=== PATIENT | male | born 1985 | race Caucasian/White ===

== ENCOUNTER 2018-11-04 19:16 | Emergency (ER) | payer OTHER ==
[2018-11-04] MEDS ORDERED: PROMETHAZINE HCL 25 MG/ML INJ IVP ONE (19:23)
[2018-11-04] MEDS ORDERED: FAMOTIDINE 20 MG/NACL 50 ML IV ONE (19:23)
[2018-11-04] MEDS ORDERED: NS 1,000 ML IV ONE (19:23)
[2018-11-04] MEDS ORDERED: ONDANSETRON 4 MG/2 ML VIAL IVP ONE (19:23)
[2018-11-04] MEDS ORDERED: PANTOPRAZOLE SODIUM 40 MG VIAL IVP ONE (19:40)
--- NOTE | 2018-11-04 19:46 | EDPHY ---
H & P Time Seen by Provider: 11/04/18 19:23 HPI/ROS: HPI Acid reflux. Vomiting. 33-year-old male by private vehicle with his girlfriend. This patient presents to the emergency department complaining of a sensation of acid reflux which comes on in the morning every morning, causes him a cough and then vomit. He reports that this has been going on for 6-8 months. He reports that it has been worse in the last couple of weeks and is occurring every morning and sometimes throughout the day. He reports that he has a burning sensation in his epigastrium when this is occurring. He has not seen a physician for this. He moved to [place] for last July. He currently does not have a primary care physician. Last bowel movement was yesterday. No bloody or melenic stool. No diarrhea. ROS: Constitutional: No fever, no chills. No weakness. Eyes: No discharge. No changes in vision. ENT: No sore throat. No nasal congestion or rhinorrhea. Respiratory: As above. No shortness of breath. Cardiac: No chest pain, no palpitations. Gastrointestinal: As above. Genitourinary: No hematuria. No dysuria or increased frequency with urination. Musculoskeletal: No back pain. No neck pain. No myalgias or arthralgias. Skin: No rashes. Neurological: No headache. No focal weakness or altered sensation. Past medical history: Right shoulder surgery. Right knee surgery. Social history: Here with his girlfriend. Denies alcohol. Nonsmoker. Physical Exam: General Appearance: Alert, mildly anxious. This patient is responding to questions appropriately and in full sentences. This patient appears well- hydrated and well-nourished. Eyes: Pupils equal and round no pallor or injection. No lid edema, erythema or injection. ENT, Mouth: Mucous membranes are moist. The pharyngeal tissues are unremarkable. No edema or swelling. No asymmetry suggestive of abscess. No erythema or exudates. Respiratory: There are no retractions, lungs are clear to auscultation with good air movement bilaterally. Cardiovascular: Regular rate and rhythm. No murmur. Gastrointestinal: Abdomen is soft and nontender, no masses, bowel sounds normal. No focal tenderness at McBurney's point. No Choe sign. Neurological: Motor sensory function is grossly intact. Cranial nerves are normal. Gait is normal. Skin: Warm and dry, no rashes. Musculoskeletal: Neck is supple and nontender. Extremities are symmetrical. All joints range without pain or impingement. Psychiatric: No agitation. No depression. Database: EKG: Imaging: Chest x-ray PA and lateral: No free air. Cardiac mediastinal silhouette is unremarkable. No evidence of infiltrate or pneumothorax. No acute cardiopulmonary disease process. Procedures: Emergency department course: Triage vital signs reviewed and are normal. IV was placed. He was started on IV normal saline with 1 L to be given over the next hour. He will be given 4 mg of IV Zofran, 6.25 mg of IV Phenergan for nausea. His presentation is consistent with GERD. He will be given 20 mg of IV Pepcid for short term relief and 40 mg of IV Protonix. Appropriate blood work ordered. Blood work reviewed and is reassuring. 8:30 p.m., patient re-evaluated, he is feeling better at this time. I discussed the results of his blood work. Repeat abdominal exam is as above soft , nontender nondistended. He has been taking oral fluids without issue in the emergency department. He feels comfortable going home and I feel he is safe for discharge. I will have him follow up with [facility] the [facility] for re-evaluation and further management of his GERD and likely endoscopy. He is in agreement with this plan. He will be prescribed Protonix, 40 mg daily. Return to emergency department precautions were reviewed with him. All of his questions were answered. He was discharged from the emergency department in good condition. Differential Diagnosis: The differential diagnosis on this patient includes but is not limited to hiatal hernia, gastroesophageal reflux disease, esophageal dysmotility, esophageal sphincter dysfunction, gastritis. Perforated peptic ulcer, cholecystitis, pancreatitis, bowel obstruction unlikely. This represents a partial list of diagnoses considered. These considerations are based on history , physical exam, past history, reassessment and diagnostic testing. Smoking Status: Never smoked Constitutional: Initial Vital Signs Temperature (C) 36.5 C 11/04/18 19:22 Heart Rate 86 11/04/18 19:22 Respiratory Rate 16 11/04/18 19:22 Blood Pressure 116/71 11/04/18 19:22 O2 Sat (%) 97 11/04/18 19:22 O2 Delivery Mode Room Air Allergies/Adverse Reactions: No Known Allergies Allergy (Unverified 11/04/18 19:21) Home Medications: Medication Instructions Recorded Pantoprazole Sodium [Protonix] 40 mg PO DAILY #30 tab 11/04/18 Medical Decision Making - Diagnostics Imaging Results: Imaging Impressions Chest X-Ray 11/04/18 19:36 Impression: There is no focal infiltrate. - Data Points Laboratory Results: Laboratory Results 11/04/18 20:00 11/04/18 20:00 11/04/18 11/04/18 20:00 20:00 WBC 7.87 10^3/uL 10^3/uL (3.80-9.50) RBC 5.47 10^6/uL 10^6/uL (4.40-6.38) Hgb 15.9 g/dL g/dL (13.7-17.5) Hct 46.6 % % (40.0-51.0) MCV 85.2 fL fL (81.5-99.8) MCH 29.1 pg pg (27.9-34.1) MCHC 34.1 g/dL g/dL (32.4-36.7) RDW 12.7 % % (11.5-15.2) Plt Count 297 10^3/uL 10^3/uL (150-400) MPV 9.3 fL fL (8.7-11.7) Neut % (Auto) 51.7 % % (39.3-74.2) Lymph % (Auto) 33.7 % % (15.0-45.0) [place] % (Auto) 6.9 % % (4.5-13.0) Eos % (Auto) 6.5 % % (0.6-7.6) Baso % (Auto) 0.9 % % (0.3-1.7) Nucleat RBC Rel Count 0.0 % % (0.0-0.2) Absolute Neuts (auto) 4.08 10^3/uL 10^3/uL (1.70-6.50) Absolute Lymphs (auto) 2.65 10^3/uL 10^3/uL (1.00-3.00) Absolute Monos (auto) 0.54 10^3/uL 10^3/uL (0.30-0.80) Absolute Eos (auto) 0.51 10^3/uL H 10^3/uL (0.03-0.40) Absolute Basos (auto) 0.07 10^3/uL 10^3/uL (0.02-0.10) Absolute Nucleated RBC 0.00 10^3/uL 10^3/uL (0-0.01) Immature Gran % 0.3 % % (0.0-1.1) Immature Gran # 0.02 10^3/uL 10^3/uL (0.00-0.10) Sodium 136 mEq/L mEq/L (135-145) Potassium 4.4 mEq/L mEq/L (3.5-5.2) Chloride 103 mEq/L mEq/L (97-110) Carbon Dioxide 26 mEq/l mEq/l (22-31) Anion Gap 7 mEq/L mEq/L (6-14) BUN 13 mg/dL mg/dL (7-23) Creatinine 0.9 mg/dL mg/dL (0.7-1.3) Estimated GFR > 60 Glucose 86 mg/dL mg/dL (70-100) Calcium 9.2 mg/dL mg/dL (8.5-10.4) Total Bilirubin 0.4 mg/dL mg/dL (0.1-1.4) Conjugated Bilirubin 0.3 mg/dL mg/dL (0.0-0.5) Unconjugated Bilirubin 0.1 mg/dL mg/dL (0.0-1.1) AST 23 IU/L IU/L (17-59) ALT 43 IU/L IU/L (21-72) Alkaline Phosphatase 55 IU/L IU/L (38-126) Total Protein 6.8 g/dL g/dL (6.3-8.2) Albumin 3.9 g/dL g/dL (3.5-5.0) Lipase 293 IU/L IU/L (23-300) Medications Given: Discontinued Medications Sodium Chloride (Ns) 1,000 mls @ 0 mls/hr IV EDNOW ONE; Wide Open PRN Reason: Protocol Stop: 11/04/18 19:24 Last Admin: 11/04/18 19:55 Dose: 1,000 mls Famotidine/Sodium Chloride (Pepcid 20 Mg (Premix)) 50 mls @ 200 mls/hr IV EDNOW ONE Stop: 11/04/18 19:37 Last Admin: 05/09/19 19:54 Dose: 50 mls Ondansetron HCl (Zofran) 4 mg IVP EDNOW ONE Stop: 11/04/18 19:24 Last Admin: 11/04/18 19:55 Dose: 4 mg Pantoprazole Sodium (Protonix) 40 mg IVP EDNOW ONE Stop: 11/04/18 19:41 Last Admin: 11/04/18 19:59 Dose: 40 mg Promethazine HCl (Phenergan) 6.25 mg IVP EDNOW ONE Stop: 11/04/18 19:24 Last Admin: 11/04/18 19:55 Dose: 6.25 mg Departure - Departure Disposition: Home, Routine, Self-Care Clinical Impression: GERD (gastroesophageal reflux disease), Vomiting Condition: Good Instructions: Gastroesophageal Reflux Disease (ED) Additional Instructions: Read and follow provided instructions. Follow-up with Dr. Croft or 1 of his partners a [facility] for re-evaluation and further management as discussed. Take medication as prescribed for acid reflux control. Avoid spicy fatty foods and alcohol. Return to the emergency department for worsening symptoms, worsening abdominal pain, vomiting or other serious concerns. Referrals: Isaias Croft MD [Medical Doctor] - As per Instructions Prescriptions: Pantoprazole Sodium [Protonix] 40 mg PO DAILY #30 tab
[2018-11-04] MEDS ORDERED: PANTOPRAZOLE SODIUM 40 MG VIAL ONE (19:58)
[2018-11-04 20:19] LABS: PLATELET COUNT 297 10^3/uL (150-400)
[2018-11-04 20:42] VITALS: BP 103/67
== END 2018-11-04 20:46 | disposition home or self-care (01) ==
DX: K21.9 Gastro-esophageal reflux disease without esophagitis (principal)
CPT/HCPCS: 96374; J2405; J2550